=== PATIENT | female | born 1950 | race Caucasian/White ===

== ENCOUNTER → 2016-07-25 | Outpatient (CLI) | payer MEDICARE, MEDICAID ==
[~2016-07-25] MED LIST: ACARBOSE25 MG PO; ADVAIR DISKUS 21 DSK IH; ALLERGY10 M1 PO; AMOXICILLIN 50500 MG PO; ARICEPT 10 MG T10 MG PO; ARICEPT23 MG PO; CALCIUM CARBON600 MG PO; CALCIUM1 TA1 PO; CETIRIZINE HCL10 MG PO; CIPROFLOXACIN500 MG PO; DEPAKOTE 125MG125 MG PO; DONEPEZIL 10MG10 MG PO; FEVER REDUCER650 MG PR; FLOVENT DI50 MCG/ACT IH; FLUTICASON0.05 MG/AC NS; KLOR-CON 1010 ME1 PO; KLOR-CON 1010 MEQ PO; LACTULOSE10 GM/15 M PO; LACTULOSE20 GM/30 M PO; LEVAQUIN 750 M750 MG PO; LEVAQUIN500 MG PO; LISINOPRIL 20MG20 MG PO; LISINOPRIL/HCTZ FT; LISINOPRIL/HCTZ1 TA3 PO; LOPERAMIDE2 MG PO; LORATADINE 10MG10 M1 PO; LORAZEPAM0.5 MG/TAB FT; LORTAB 5/500 501 TAB PO; METFORMIN 500M500 MG PO; METFORMIN500 MG PO; MIRALAX(PO17 GM/1 PA PO; MIRALAX17 GM/PACK PO; NAMENDA10 M1 PO; NAMENDA10 MG PO; NATURE'S TEARS15 ML OP; NUEDEXTA1 CAP PO; PRINZIDE 25 MG-1 TAB PO; PROAIR HFA0.09 MG/AC IH; QUALITY CHOICE600 M1 PO; RANITIDINE150 M1 PO; ROBAFEN AC 10480 ML PO; ROBAFEN DM473 ML PO; SALMETEROL-F28 PUFFS IN; SEPTRA DS 800 M1 TAB PO; SYNTHROID 0.00.05 MG PO; THERAPEUTIC-M1 TAB PO; TRAMADOL 50MG T50 MG PO; TRAZADONE HYDR100 MG PO; TRAZODONE 50MG50 MG PO; TYLENOL ARTHRI650 MG PO; VISINE ADVANCED15 ML OP; VITAMIN D 90 MG1 TA1 PO; VITAMIN D31000 IU PO; VITAMIN D32000 IU PO; VITAMIN D35000 IU PO; VITAMIN D5000 IU PO; XYZAL5 MG PO; ZESTORETIC 12.51 TA1 PO; ZITHROMAX Z-PA250 M1 PO; ZOCOR40 MG PO; ZYRTEC10 M2 PO; [UNRECOGNIZED DRUG - OTHER] PO; [UNRECOGNIZED DRUG - OTHER] TP
--- NOTE | 2016-07-25 16:11 | RADIOLOGY REPORT PS360 ---
US URINARY BLADDER HISTORY: Urinary retention COMPARISON: None FINDINGS: Urinary bladder volume is estimated at 27 mL. Limited exam. No obvious fluid collection or masses. Cannot void for post void images. IMPRESSION: Low urinary bladder volume of 27 mL
--- NOTE | 2016-07-25 16:12 | RADIOLOGY REPORT PS360 ---
US [id number] HISTORY: Renal insufficiency, hematuria ,HEMATURIA COMPARISON: None FINDINGS: RIGHT KIDNEY:9 x 5 x 4 cm. Mild cortical thinning inferiorly. No hydronephrosis or mass or perinephric fluid collection. LEFT KIDNEY:9 x 4.6 x 4.4 cm. No hydronephrosis. Mild cortical thinning superiorly. OTHER FINDINGS: No other pertinent findings IMPRESSION: Mild bilateral renal cortical thinning otherwise negative bilateral renal ultrasound
== END ==
LOC: RT 07-14 09:30
DX: R94.31 Abnormal electrocardiogram [ECG] [EKG] (principal); R00.1 Bradycardia, unspecified; I10 Essential (primary) hypertension; E11.9 Type 2 diabetes mellitus without complications; E78.5 Hyperlipidemia, unspecified; I44.7 Left bundle-branch block, unspecified; R79.89 Other specified abnormal findings of blood chemistry